=== PATIENT | female | born 1995 | race Hispanic/Latino ===

== ENCOUNTER 2019-10-18 18:52 | Emergency (ER) | payer MEDICAID ==
[2019-10-18 20:33] LABS: APPEARANCE,URINE Clear (CLEAR); BILIRUBIN,URINE Negative (NEGATIVE); COLOR,URINE Yellow (YELLOW); GLUCOSE, URINE (UA) Negative (NEGATIVE); KETONES,URINE Negative (NEGATIVE); LEUKOCYTE ESTERASE ,URINE Negative (NEGATIVE); NITRATE,URINE Negative (NEGATIVE); OCCULT BLOOD,URINE Negative (NEGATIVE); PH,URINE 6.5 (5.0-8.0); PROTEIN,URINE Negative (NEGATIVE)
[2019-10-18 20:33] LABS: BASOPHILS % (AUTO) 0.2 % (0.0-5.0); EOSINOPHILS % (AUTO) 0.2 % (0.0-8.0); HEMATOCRIT 38.9 % (36-48); LYMPHOCYTES % (AUTO) 18.8 % (21.0-51.0); MEAN CORPUSCULAR HEMOGLOBIN 26.5 pg (27.0-33.0); MEAN CORPUSCULAR HGB CONC 33.4 g/dL (32.0-36.0); MEAN CORPUSCULAR VOLUME 79.4 fL (79-99); MONOCYTES % (AUTO) 5.9 % (3.0-13.0); NEUTROPHILS % (AUTO) 74.5 % (40.0-77.0); PLATELET COUNT (AUTO) 319 K/uL (130-400); WHITE BLOOD COUNT (AUTO) 13.7 K/uL (4.8-10.8)
[2019-10-18 20:46] LABS: CREATININE 0.9 mg/dL (0.5-1.5); POTASSIUM 3.9 mmol/L (3.5-5.1)
[2019-10-18 21:11] LABS: ALBUMIN 3.7 g/dL (3.5-5.0); BILIRUBIN,TOTAL 0.3 mg/dL (0.2-1.0); TOTAL PROTEIN, SERUM 7.9 g/dL (6.0-8.3)
[2019-10-18] MEDS ORDERED: ONDANSETRON ODT 4 MG TAB ONE (21:27)
== END 2019-10-18 21:43 | disposition home or self-care (01) ==
LOC: EDH 18:52
DX: O26.891 Other specified pregnancy related conditions, first trimester (principal); K21.9 Gastro-esophageal reflux disease without esophagitis; R10.13 Epigastric pain; Z3A.08 8 weeks gestation of pregnancy
CPT/HCPCS: 36415; 76817; 80053; 81003; 83690; 84702; 85025

== ENCOUNTER 2020-05-12 10:47 | Observation (INO) | payer MEDICAID ==
[2020-05-12 11:34] LABS: APPEARANCE,URINE Clear (CLEAR); BILIRUBIN,URINE Negative (NEGATIVE); COLOR,URINE Yellow (YELLOW); GLUCOSE, URINE (UA) Negative (NEGATIVE); KETONES,URINE 15 mg/dL (NEGATIVE); LEUKOCYTE ESTERASE ,URINE Small (NEGATIVE); NITRATE,URINE Negative (NEGATIVE); OCCULT BLOOD,URINE Negative (NEGATIVE); PROTEIN,URINE Negative (NEGATIVE)
[2020-05-12 13:07] LABS: BACTERIA,URINE Few /HPF (None Seen); RBC,URINE 0-1 /HPF (0-1)
[2020-05-20] MEDS ORDERED: PREN1TAB63 PO (20:29)
== END 2020-05-12 13:50 | disposition home or self-care (01) ==
LOC: EDH 10:47 → LDH 10:48
PROVIDERS: ADMIT Specialist; ATTEND Specialist
DX: O62.9 Abnormality of forces of labor, unspecified (principal); Z3A.38 38 weeks gestation of pregnancy
CPT/HCPCS: 81001; 96360; 99284; G0378 ×3; J7120

== ENCOUNTER 2022-06-13 10:42 | Emergency (ER) | payer MEDICAID ==
[~2022-06-13] VITALS: Ht 162.6 cm; Wt 99.8 kg
[~2022-06-13 10:42] MED LIST: PREN1TAB63 PO
[2022-06-13 11:29] LABS: BASOPHILS % (AUTO) 0.3 % (0.0-5.0); EOSINOPHILS % (AUTO) 0.3 % (0.0-8.0); MEAN CORPUSCULAR HEMOGLOBIN 24.6 pg (27.0-33.0); MEAN CORPUSCULAR HGB CONC 32.4 g/dL (32.0-36.0); MONOCYTES % (AUTO) 5.7 % (3.0-13.0); NEUTROPHILS % (AUTO) 80.4 % (40.0-77.0); PLATELET COUNT (AUTO) 289 K/uL (130-400); RED CELL DISTRIBUTION WIDTH 15.6 % (11.0-15.5); WHITE BLOOD COUNT (AUTO) 10.8 K/uL (4.8-10.8)
[2022-06-13 11:39] LABS: CREATININE 0.8 mg/dL (0.5-1.5)
[2022-06-13 11:44] LABS: TOTAL PROTEIN, SERUM 8.1 g/dL (6.0-8.3)
[2022-06-13 15:45] VITALS: BP 133/78
== END 2022-06-13 15:47 | disposition home or self-care (01) ==
LOC: EDH 10:42
DX: N93.8 Other specified abnormal uterine and vaginal bleeding (principal)
CPT/HCPCS: 36415; 76856; 80053; 84703; 85025; 86850; 86900; 86901

== ENCOUNTER 2022-07-03 14:42 | Emergency (ER) | payer MEDICAID, OTHER ==
[~2022-07-03] VITALS: Ht 160 cm; Wt 104.3 kg
[2022-07-03 14:58] VITALS: BP 123/74
[2022-07-03] MEDS ORDERED: CYCLOBENZAPRINE HCL 10 MG TABLET PO ONE (17:30)
[2022-07-03] MEDS ORDERED: KETOROLAC 60 MG VIAL (30MG/ML) IM ONE (17:30)
[2022-07-03] MEDS ORDERED: CYCL10TA16 PO (17:50)
[2022-07-03] MEDS ORDERED: IBUP-2071 PO (17:50)
== END 2022-07-03 18:09 | disposition home or self-care (01) ==
LOC: EDH 14:42
DX: S39.012A Strain of muscle, fascia and tendon of lower back, initial encounter (principal); S20.219A Contusion of unspecified front wall of thorax, initial encounter; E66.2 Morbid (severe) obesity with alveolar hypoventilation; Z68.41 Body mass index [BMI] 40.0-44.9, adult; V89.2XXA Person injured in unspecified motor-vehicle accident, traffic, initial encounter; Y93.89 Activity, other specified; Y92.89 Other specified places as the place of occurrence of the external cause; Y99.8 Other external cause status
CPT/HCPCS: 99284; 71045; 81025; 72100; 96372; J1885

== ENCOUNTER 2025-05-11 15:10 | Emergency (ER) | payer SELFPAY ==
[~2025-05-11] VITALS: Ht 160 cm; Wt 108.9 kg
--- NOTE | 2025-05-11 17:19 | ERN ---
General Chief Complaint: Swallowed Foreign Body Stated Complaint: SWALLOWED METAL TAB Time Seen by MD: 15:21 History of Present Illness Initial Comments 29-year-old female presents because she had accidentally swallowed the cap of a soda can. She has no symptoms. Allergies: Coded Allergies: No Known Drug Allergies (Unverified Allergy, Unknown, 02/26/24) Home Meds Reported Medications Vit/Iron Fumarate/FA ( Tablet) 1 Each Tablet, 1 EACH PO HS, TAB 05/20/20 Past Medical History Past Medical History: No Pertinent History Medical History Other: Morbidly obese Past Surgical History: None Family History Family History: Negative Social History Social History: Lives with family Female( History) LMP: Mar 04, 2024 : 5 Para: 3 Aborts: 1 ROS Dictation CONSTITUTIONAL: No chills, no fever, no weakness, no diaphoresis, no malaise. HEAD/FACE: No signs of trauma. EENT: No eye pain, no blurred vision, no tearing, no double vision, no ear pain, no ear discharge, no nose pain, no nasal congestion, no throat pain, no throat swelling, no mouth pain. RESPIRATORY: No cough, no orthopnea, no SOB, no stridor, no wheezing. CARDIOVASCULAR: No chest pain, no edema, no palpitations, no syncope. GASTROINTESTINAL/ABDOMINAL: No abdominal pain, no constipation, no diarrhea, no nausea, no vomiting. GENITOURINARY: No abnormal discharge, no dysuria, no frequent urination, no hematuria. No complaints of pain in the genitals. MUSCULOSKELETAL: No back pain, no gout, no joint pain, no joint swelling, no muscle pain, no muscle stiffness, no neck pain. INTEGUMENTARY: No change in color, no change in hair/nails, no dryness, no lesion, no lumps, no rash. NEUROLOGICAL/PSYCH: No anxiety, not depressed, no emotional problem, no headache, no numbness, no pre-existing deficit, no history of seizures, no tremors, no weakness. HEMATOLOGIC/LYMPHATIC: Not anemic, no history of blood clots, no apparent bleeding, no bruising, glands not swollen. All Systems Negative, Except as Noted. Physical Exam Physical Exam Dictation VITAL SIGNS: Reviewed. GENERAL APPEARANCE: Alert, oriented x3, no acute distress, obese. HEAD AND FACE: Non-traumatic. EYES: PERRL, pink conjunctivas, eyelid no trauma, anterior chamber clear. EARS: Pinnas intact and no signs of trauma or erythema. Ear canals clear and no discharge. TMs no erythema. NOSE: No discharge, no bleeding. OROPHARYNX: Mouth normal, teeth no caries, tongue pink. Pharynx clear, no dusty thema. Tonsils no exudates, no abscesses noted. Mucous membrane moist. NECK: Supple, non-tender, no thyromegaly, no masses, no JVD, no bruits. BREAST: Deferred. CHEST: No tenderness, no crepitus, no paradoxical movement, no retractions. LUNGS: Clear, well-ventilated, symmetric, no rales, no wheezing, no rhonchi, no stridor, good breath sounds bilaterally. HEART: Regular rate, regular rhythm, no murmur, no gallops. VASCULAR: No peripheral edema. ABDOMEN: Soft, positive bowel sounds, nondistended, no guarding, nontender, no rebound, no masses no hepatomegaly, no splenomegaly, no Tse's sign, no hernias. RECTAL: Deferred. GENITAL: Deferred. NEUROLOGICAL: Normal speech, gross motor function intact, gross sensory function intact. MUSCULOSKELETAL: Neck nontender, full range of motion, back nontender, full range of motion. EXTREMITIES: Nontender, full range of motion. SKIN: Color pink, dry, no turgor, no rash, no lacerations, no abrasions, no contusions. LYMPHATICS: Deferred. MDM CC: Swallowed foreign body Historian: Patient Comorbidities: Obesity Limitations by social determinants of health: None Differential diagnosis: Obstruction for swallowed foreign body Chest x-ray and KUB showed no acute abnormalities Patient is p.o. tolerant nontoxic in appearance with stable vital signs Plan will be conservative management. We will DC. ED Course Orders Procedure Category Date Status Time Chest 1vw RAD 05/11/25 Taken 15:25 Abd 1vw RAD 05/11/25 Taken 15:25 ,Urine Test LAB 05/11/25 Logged 16:26 Vital Signs Date Time Temp Pulse Resp B/P (MAP) Pulse Ox O2 Delivery O2 Flow Rate FiO2 05/11/25 15:11 98.6 78 16 111/64 DX & DISP Disposition: Discharge Departure Impression: Primary Impression: Swallowed foreign body Condition: Stable Additional Instructions: The x-rays do not show any foreign bodies. As we discussed, most of the time foreign bodies will pass on their own. Return to the emergency department if you have any vomiting, persistent abdominal pain, or any concerning symptoms. Referrals: VAUGHN MORA MD (PCP) JYOTI VERGARA DO May 11, 2025 17:19
--- NOTE | 2025-05-11 18:07 | HMCIMG ---
EXAM: XR Chest, 2View(s). CLINICAL HISTORY: 29-year-old female with chest pain swallowed FB. COMPARISON: XR Chest 16:13 07/03/22 FINDINGS: LUNGS: Negative chest. No clear evidence of foreign body. Consider abdomen series if clinically indicated similar to prior. PLEURAL SPACES: No pleural effusion or pneumothorax. HEART: The heart size is normal. BONES: No acute osseous abnormality. IMPRESSION: 1. No acute abnormality. 2. No evidence of foreign body. 3. Consider abdomen series if clinically indicated similar to prior XR Chest 16:13 07/03/22. /[place]
--- NOTE | 2025-05-11 18:08 | HMCIMG ---
EXAM: CR Abdomen, 2 View. CLINICAL HISTORY: swallowed FB COMPARISON: None provided. FINDINGS: BOWEL: The bowel gas pattern is within normal limits. PERITONEUM/SOFT TISSUES: No free air evident. No pathologic appearing calcification. BONES: No acute osseous abnormality. IMPRESSION: No radiopaque foreign body. The bowel gas pattern is within normal limits. /[place]
[2025-05-11 18:18] VITALS: BP 101/59; PULSE 71; RESP 16; TEMP 98.6; O2SAT 99
== END 2025-05-11 18:19 | disposition home or self-care (01) ==
LOC: EDH 15:14
DX: T18.9XXA Foreign body of alimentary tract, part unspecified, initial encounter (principal); E66.01 Morbid (severe) obesity due to excess calories; Z68.41 Body mass index [BMI] 40.0-44.9, adult; W44.E9XA Other non-magnetic metal objects entering into or through a natural orifice, initial encounter; Y93.89 Activity, other specified; Y92.89 Other specified places as the place of occurrence of the external cause; Y99.8 Other external cause status
CPT/HCPCS: 71045; 74018; 99284